=== PATIENT | male | born 1945 | race Caucasian/White ===

== ENCOUNTER 2017-10-24 09:15 | Outpatient (CLI) | payer MEDICARE ==
[~2017-10-24] VITALS: Ht 185.4 cm; Wt 99.8 kg
[~2017-10-24 09:15] MED LIST: ASPI-586 PO; ATOR20TA66 PO; LISI-556 PO; PRAS5TAB3 PO
== END 2017-10-24 09:46 ==
LOC: PREOP 09:15
PROVIDERS: ATTEND Surgery
DX: Z01.818 Encounter for other preprocedural examination (principal); Z12.11 Encounter for screening for malignant neoplasm of colon

== ENCOUNTER 2017-10-26 10:42 | Day surgery (SDC) | payer MEDICARE ==
[~2017-10-26] VITALS: Ht 185.4 cm; Wt 99.8 kg
--- OUTSIDE RECORDS SUMMARY | 2017-10-26 10:45 | XMS REPORT | Continuity of Care Document ---
Author Author [facility] Organization [facility] Address Unknown Phone Unavailable Allergies There is no data. Medications There is no data. Problems There is no data. Procedures There is no data. Results There is no data. Encounters ACCT No. Visit Date/Time Discharge Status Pt. Type Provider Facility Loc./Unit Complaint [id number] 09/19/2017 12:20:04 09/19/2017 23:59:59 CLS Outpatient [id number] 10/20/2017 09:58:00 10/20/2017 23:59:59 CLS Outpatient STEVE CASTRO MD [facility] PREOP COLONOSCOPY [id number] 10/26/2017 12:15:00 PEN Preadmit STEVE CASTRO MD [facility] ENDO SCREENING
[2017-10-26] MEDS ORDERED: NS IV 500 ML 500 ML ONE (10:49)
--- NOTE | 2017-10-26 10:57 | Progress Note-Pre Operative ---
Pre-Operative Progress Note H&P Reviewed The H&P was reviewed, patient examined and no changes noted. Date Seen by Provider: Oct 26, 2017 Time Seen by Provider: 10:50 Date H&P Reviewed: Oct 26, 2017 Time H&P Reviewed: 10:50 Pre-Operative Diagnosis: screening colonoscopy STEVE CASTRO MD Oct 26, 2017 10:57 am
--- NOTE | 2017-10-26 10:57 | Conscious Sedation/ASA ---
Conscious Sedation Pre-Proced Time Reviewed: 10:50 ASA Class: 2 Airway Mallampati Classification: (seminole appropriate class) I. II. III, IV Lungs Heart ASA score ASA 1: a normal healthy patient ASA 2: a patient with a mild systemic disease (mid diabetes, controlled hypertension, obesity ASA 3: a patient with a severe systemic disease that limits activity (angina , COPD, prior Myocardial infarction) ASA 4: a patient with an incapacitating disease that is a constant threat to life (CHF, renal failure) ASA 5: a moribund patient not expected to survive 24 hrs. (ruptured aneurysm) ASA 6: a declared brain patient whose organs are being harvested. For emergent operations, add the letter E after the classification Grade 2 Sedation Plan: Analgesia, Amnesia, Plan communicated to team members, Discussed options with patient/fam, Discussed risks with patient/fam Note The patient is an appropriate candidate to undergo the planned procedure, sedation, and anesthesia. The patient immediately re-assessed prior to indication. STEVE CASTRO MD Oct 26, 2017 10:56 am
[2017-10-26] MEDS ORDERED: morphine INJ 10 MG/ML 1ML (SYR OR VIAL) IV PRN (11:00)
[2017-10-26] MEDS ORDERED: ACETAMINOPHEN 325 MG TABLET PO PRN (11:00)
[2017-10-26] MEDS ORDERED: ONDANSETRON 4 MG/2 ML (SDV) Z0FRAN IV PRN (11:00)
[2017-10-26] MEDS ORDERED: HYDROcodone/APAP 5 MG/325 MG (LORTAB) TAB PO PRN (11:00)
[2017-10-26 11:16] VITALS: BP 131/81
[2017-10-26] MEDS ORDERED: LIDOCAINE JELLY 2% (XYLOCAINE) 5 ML TUBE ONE (11:18)
[2017-10-26] MEDS ORDERED: fentaNYL INJECTION 100 MCG/2 ML AMP ONE (11:18)
[2017-10-26] MEDS ORDERED: MIDAZOLAM 2 MG/2 ML (VERSED) VIAL ONE ×4 (11:19)
[2017-10-26] MEDS ORDERED: NS IV 500 ML 500 ML IV PRN (11:22)
[2017-10-26] MEDS ORDERED: NS IV 500 ML 500 ML IV SCH (11:30)
[2017-10-26] MEDS ORDERED: LIDOCAINE JELLY 2% (XYLOCAINE) 5 ML TUBE MM PRN (11:30)
[2017-10-26] MEDS: fentaNYL INJECTION 100 MCG/2 ML AMP IVP PRN ×2 (11:55→12:13)
[2017-10-26] MEDS: MIDAZOLAM 2 MG/2 ML (VERSED) VIAL IVP PRN ×3 (11:56→12:25)
--- NOTE | 2017-10-26 12:36 | Progress Note-Post Operative ---
Post-Operative Progess Note Surgeon (s)/Early Childhood Teacher Assistant (s) Surgeon STEVE CASTRO MD Early Childhood Teacher Assistant: none Pre-Operative Diagnosis screening colonoscopy Post-Operative Diagnosis mild chronic stage 2 ext and int hemorrhoids, mild sigmoid diverticuosis. Procedure & Operative Findings Date of Procedure 10/26/17 Procedure Performed/Findings Colonoscopy. Anesthesia Type CS Estimated Blood Loss Estimated blood loss (mL): minimal Specimens/Packing Specimens Removed none STEVE CASTRO MD Oct 26, 2017 12:36 pm
--- NOTE | 2017-10-26 12:40 | Discharge Inst-Surgical ---
D/C Lap Instructions-MATTHEW Follow Up Appt in 2 weeks Activity as tolerated High Fiber Diet 25g or more per day Avoid Alcohol, Caffeine, Spicy [place] and Acid foods. Drink 64 fluid oz or more of fluids per day. Symptoms to Report: Fever over 101 degree F, Nausea/Vomiting If any problems/questions: Contact your physician or go to Emergency Room STEVE CASTRO MD Oct 26, 2017 12:40 pm
[2017-10-26 12:50] VITALS: BP 97/63
[2017-10-26 13:28] VITALS: BP 118/81
[2017-10-26 14:00] VITALS: BP 128/85
[2017-10-26 14:08] VITALS: BP 128/85
--- NOTE | 2017-10-26 20:06 | OPERATIVE REPORT ---
DATE OF SERVICE: 10/26/2017 ATTENDING PRIMARY CARE PHYSICIAN: Dr. Nicholson. PREOPERATIVE DIAGNOSIS: Screening colonoscopy. POSTOPERATIVE DIAGNOSES: Chronic stage II external and internal hemorrhoids, mild sigmoid diverticulosis. PROCEDURE: Colonoscopy. SURGEON: Steve Castro MD ANESTHESIA: Conscious sedation. ESTIMATED BLOOD LOSS: Minimal. FINDINGS: Chronic stage II external and internal hemorrhoids. Prostate gland was palpable and appeared normal. Mild sigmoid diverticulosis, no polyps identified. DISPOSITION: The patient tolerated the procedure well. INDICATIONS: The patient is a 72-year-old male in need of a screening colonoscopy. He reports that he did have one approximately 5 to 6 years ago and believes it to be normal; however, he is unsure of any family history of colon cancer. He does not report any red blood per rectum or any dark tarry stools as well as no major episodes of constipation or diarrhea. DESCRIPTION OF PROCEDURE: The patient was brought to the endoscopy suite, laid in the left lateral decubitus position. After adequate IV pain and sedating medications and conscious sedation anesthesia, a digital rectal examination was performed. Chronic stage II external and internal hemorrhoids were identified, which were not actively edematous nor inflamed and no bleeding. Normal sphincter tone was felt and there were no palpable masses. The endoscope was then intubated to the anus, rectum and gently insufflated. The endoscope was then advanced to the valves of Hood of the rectum with no polyps or any neoplasms identified. We then proceeded through the sigmoid colon where a mild sigmoid diverticulosis was identified. There were no mucosal inflammatory changes to indicate any active diverticulitis. Endoscope was then advanced to the remainder of the descending, transverse and ascending colon to the cecum. These segments were normal. There were no polyps or any neoplasms identified throughout the colon or rectum. The endoscope was then slowly withdrawn while taking a second look and suctioning of residual air with no additional findings. The patient tolerated the procedure well. We will recommend continued high-fiber diet with at least 30 g of fiber per day as well as at least 64 fluid ounces of water daily to promote soft stools on a daily basis. If he wants to continue to have screening colonoscopies every 5 years, he may; however, if he is asymptomatic, he may wait longer. Job ID: [id number] DocumentID: [id number] Dictated Date: 10/26/2017 12:48:37 Powered Bridge Specialist Date: 10/26/2017 20:06:18 Dictated By: STEVE CASTRO MD
== END 2017-10-26 14:14 | disposition home or self-care (01) ==
LOC: ENDO 10:42
PROVIDERS: ATTEND Surgery
DX: Z12.11 Encounter for screening for malignant neoplasm of colon (principal); K57.30 Diverticulosis of large intestine without perforation or abscess without bleeding; K64.1 Second degree hemorrhoids; I25.2 Old myocardial infarction; I25.10 Atherosclerotic heart disease of native coronary artery without angina pectoris; I10 Essential (primary) hypertension; E78.00 Pure hypercholesterolemia, unspecified; Z95.5 Presence of coronary angioplasty implant and graft; Z79.899 Other long term (current) drug therapy

== ENCOUNTER 2018-12-22 19:15 | Emergency (ER) | payer MEDICARE ==
[~2018-12-22] VITALS: Ht 186.7 cm; Wt 104.3 kg
[2018-12-22] MEDS ORDERED: fentaNYL INJECTION 100 MCG/2 ML AMP IVP STA (19:38)
--- OUTSIDE RECORDS SUMMARY | 2018-12-22 19:38 | XMS REPORT | Continuity of Care Document ---
Author Organization Unknown Address Unknown Allergies Active Description Code Type Severity Reaction Onset Reported/Identified Relationship to Patient Clinical Status Yes No Known Drug Allergies [id number] Drug Allergy Unknown N/A 10/20/2017 Medications There is no data. Problems Date Dx Coded Attending Type Code Diagnosis Diagnosed By 10/24/2017 STEVE CASTRO MD, Ot Z01.818 ENCOUNTER FOR OTHER PREPROCEDURAL EXAMIN 10/24/2017 STEVE CASTRO MD Ot Z12.11 ENCOUNTER FOR SCREENING FOR MALIGNANT NE 10/24/2017 STEVE CASTRO MD Ot Z01.818 ENCOUNTER FOR OTHER PREPROCEDURAL EXAMIN 10/24/2017 STEVE CASTRO MD Ot Z12.11 ENCOUNTER FOR SCREENING FOR MALIGNANT NE 10/24/2017 STEVE CASTRO MD Ot Z01.818 ENCOUNTER FOR OTHER PREPROCEDURAL EXAMIN 10/24/2017 STEVE CASTRO MD Ot Z12.11 ENCOUNTER FOR SCREENING FOR MALIGNANT NE 10/25/2017 STEVE CASTRO MD Ot Z01.818 ENCOUNTER FOR OTHER PREPROCEDURAL EXAMIN 10/25/2017 STEVE CASTRO MD Ot Z12.11 ENCOUNTER FOR SCREENING FOR MALIGNANT NE 10/26/2017 STEVE CASTRO MD Ot E78.00 PURE HYPERCHOLESTEROLEMIA, UNSPECIFIED 10/26/2017 STEVE CASTRO MD Ot I10 ESSENTIAL (PRIMARY) HYPERTENSION 10/26/2017 STEVE CASTRO MD Ot I25.10 ATHSCL HEART DISEASE OF [place] CORONARY 10/26/2017 STEVE CASTRO MD Ot I25.2 OLD MYOCARDIAL INFARCTION 10/26/2017 STEVE CASTRO MD Ot K57.30 DVRTCLOS OF LG INT W/O PERFORATION OR AB 10/26/2017 STEVE CASTRO MD Ot K64.1 SECOND DEGREE HEMORRHOIDS 10/26/2017 STEVE CASTRO MD Ot Z12.11 ENCOUNTER FOR SCREENING FOR MALIGNANT NE 10/26/2017 STEVE CASTRO MD, Ot Z79.899 OTHER PENITENTIARY (CURRENT) DRUG THERAPY 10/26/2017 STEVE CASTRO MD, Ot Z95.5 PRESENCE OF CORONARY ANGIOPLASTY IMPLANT 10/27/2017 STEVE CASTRO MD Ot E78.00 PURE HYPERCHOLESTEROLEMIA, UNSPECIFIED 10/27/2017 STEVE CASTRO MD Ot I10 ESSENTIAL (PRIMARY) HYPERTENSION 10/27/2017 STEVE CASTRO MD, Ot I25.10 ATHSCL HEART DISEASE OF [place] CORONARY 10/27/2017 STEVE CASTRO MD Ot I25.2 OLD MYOCARDIAL INFARCTION 10/27/2017 STEVE CASTRO MD, Ot K57.30 DVRTCLOS OF LG INT W/O PERFORATION OR AB 10/27/2017 STEVE CASTRO MD, Ot K64.1 SECOND DEGREE HEMORRHOIDS 10/27/2017 STEVE CASTRO MD Ot Z12.11 ENCOUNTER FOR SCREENING FOR MALIGNANT NE 10/27/2017 STEVE CASTRO MD, Ot Z79.899 OTHER PENITENTIARY (CURRENT) DRUG THERAPY 10/27/2017 STEVE CASTRO MD Ot Z95.5 PRESENCE OF CORONARY ANGIOPLASTY IMPLANT 10/30/2017 STEVE CASTRO MD Ot Z01.818 ENCOUNTER FOR OTHER PREPROCEDURAL EXAMIN 10/30/2017 STEVE CASTRO MD, Ot Z12.11 ENCOUNTER FOR SCREENING FOR MALIGNANT NE Procedures There is no data. Results There is no data. Encounters ACCT No. Visit Date/Time Discharge Status Pt. Type Provider Facility Loc./Unit Complaint [id number] 09/22/2018 20:36:59 09/22/2018 23:59:59 CLS Outpatient [id number] 10/26/2017 10:42:00 10/26/2017 14:14:00 DIS Outpatient STEVE CASTRO MD [facility] ENDO SCREENING [id number] 10/24/2017 09:15:00 10/24/2017 09:46:00 DIS Outpatient STEVE CASTRO MD [facility] PREOP COLONOSCOPY [id number] 12/22/2018 19:19:00 ACT Emergency LAKE RAMOS DO Via [facility] ER FS RT LEG INJ
[2018-12-22] MEDS ORDERED: ONDANSETRON 4 MG/2 ML (SDV) Z0FRAN IVP ONE (19:45)
--- NOTE | 2018-12-22 19:55 | ED General ---
General Chief Complaint: Lower Extremity Stated Complaint: RT LEG INJ Nursing Triage Note: PT. WAS RIDING A HORSE UP THE DAM AND A BRANCH FROM A TREE HIT THE HORSE IN THE HEAD, THE HORSE SPUN AND FELL DOWN THE DAM AND LANDED ON THE PT'S RIGHT LEG. PT. WAS BROUGHT IN BY POV. Nursing Sepsis Screen: No Definite Risk History of Present Illness Date Seen by Provider: Dec 22, 2018 Time Seen by Provider: 19:18 This is a 73-year-old man who had his horse fall on his right leg earlier p resenting with complaint of pain from the right hip down to the right ankle. No weakness numbness or tingling although movement makes the pain worse. He did not injure himself anywhere else. He was able to walk on it initially but he states the pain has worsened. Allergies and Home Medications Allergies Coded Allergies: No Known Drug Allergies (Unverified , 12/22/18) Home Medications Aspirin 81 Mg Tablet.dr, 81 MG PO DAILY, (Reported) Atorvastatin Calcium 20 Mg Tablet, 20 MG PO HS, (Reported) Lisinopril 5 Mg Tablet, 5 MG PO DAILY, (Reported) Prasugrel HCl 5 Mg Tablet, 5 MG PO DAILY, (Reported) Patient Home Medication List Home Medication List Reviewed: Yes Review of Systems Review of Systems Constitutional: no symptoms reported EENTM: no symptoms reported Respiratory: no symptoms reported Cardiovascular: no symptoms reported Gastrointestinal: no symptoms reported Genitourinary: no symptoms reported Musculoskeletal: see HPI Skin: no symptoms reported Psychiatric/Neurological: No Symptoms Reported Hematologic/Lymphatic: No Symptoms Reported Immunological/Allergic: no symptoms reported Past Jjgsgfr-Mfltdh-Ehihaj Hx Past Med/Social Hx: Reviewed Nursing Past Med/Soc Hx Patient Social History Former Smoker, Quit: Oct 24, 1997 Recent Foreign Travel: No Contact w/Someone Who Travel: No Recent Infectious Disease Expo: No Recent Hopitalizations: No Physical Abuse: No Sexual Abuse: No Mistreated: No Fear: No Immunizations Up To Date Date of Pneumonia Vaccine: Oct 25, 2015 Seasonal Allergies Seasonal Allergies: No Past Medical History Appendectomy, CABG, Tonsillectomy Sleep Apnea Currently Using BIPAP: Yes (wears sometimes) Heart Attack, Hypertension Physical Exam Vital Signs Vital Signs - First Documented 12/22/18 19:27 Temp 98.1 Pulse 84 Resp 20 B/P (MAP) 120/73 (89) Pulse Ox 99 O2 Delivery Room Air Capillary Refill : Less Than 3 Seconds Height, Weight, BMI Height: 6'1.50" Weight: 230lbs. 0.0oz. 104.401083cf; 29.0 BMI Method:Stated General Appearance: No Apparent Distress HEENT: Other (no abnormalities on inspection or palpation of the head or neck) Neck: Non Tender, Supple Respiratory: Chest Non Tender, Lungs Clear Cardiovascular: Regular Rate, Rhythm, Normal Peripheral Pulses Gastrointestinal: Non Tender (pelvis is stable and nontender), Soft Back: Other (nontender) Extremity: Other (there is tenderness through the diffuse right thigh, ecchymosis over the medial right knee, also swelling and tenderness in the right lower leg with all compartments feeling soft, no point tenderness over the tibial plateau, no joint laxity in the knee) Neurologic/Psychiatric: Alert, Oriented x3, No Motor/Sensory Deficits, lead software test engineer II- XII Norm as Tested; No Abnormal Cerebellar Tests Skin: Warm/Dry Progress/Results/Core Measures Suspected Sepsis Recent Fever Within 48 Hours: No Infection Criteria Present: None New/Unexplained Altered Menta: No Sepsis Screen: No Definite Risk SIRS Temperature:98.1 Pulse: 84 Respiratory Rate: 20 Blood Pressure 120 /73 Mean: 89 Results/Orders My Orders Orders - LA[place] RAMOS DO Fentanyl Injection (Sublimaze Injection (12/22/18 19:38) Ondansetron Injection (Zofran Injectio (12/22/18 19:45) Femur 2 View Right (12/22/18 19:38) Tibia Fibula 2 View Right (12/22/18 19:38) Medications Given in ED Current Medications Medications Dose Ordered Sig/Faustina Route Start Time Stop Time Status Last Admin Dose Admin Ondansetron HCl 8 mg ONCE ONCE IVP 12/22/18 19:45 12/22/18 19:46 DC 12/22/18 19:52 8 MG Vital Signs/I&O 12/22/18 12/22/18 19:27 20:38 Temp 98.1 96.9 Pulse 84 77 Resp 20 20 B/P (MAP) 120/73 (89) 133/98 (110) Pulse Ox 99 100 O2 Delivery Room Air Room Air Capillary Refill : Less Than 3 Seconds Blood Pressure Mean: 89 Progress Note : Progress Note Patient sustained blunt injuries to the right leg, he has actually been walking quite a bit since this happened. X-rays are negative. He mostly has tenderness over the right lateral thigh however all compartments feel soft, this is not consistent with compartment syndrome although I did review return precautions carefully with patient. He actually does not even want any narcotic pain medications prescribed. We provided crutches so that he can stay off the leg as much as possible over the next week, and he will see his doctor soon as possible for tertiary survey. Departure Impression Primary Impression: Contusion of right leg Qualified Codes: S80.11XA - Contusion of right lower leg, initial encounter Disposition: HOME, SELF-CARE Condition: Stable Departure-Patient Inst. Referrals: JULIA BRITT MD (PCP) Primary Care Physician Patient Instructions: Contusion (DC) LA[place] RAMOS DO Dec 22, 2018 19:55
--- NOTE | 2018-12-22 20:13 | Diagnostic Imaging Report ---
INDICATION: Right leg injury. FINDINGS: AP and lateral views of the right femur show no fracture or dislocation. IMPRESSION: Negative right femur. Dictated by: Dictated on workstation # [id number]
--- NOTE | 2018-12-22 20:14 | Diagnostic Imaging Report ---
INDICATION: Right leg injury AP and lateral views of the right tibia and fibula show no fracture or dislocation. IMPRESSION: Negative right tibia and fibula Dictated by: Dictated on workstation # [id number]
[2018-12-22 20:38] VITALS: BP 133/98
== END 2018-12-22 20:54 | disposition home or self-care (01) ==
LOC: EDUNIT# 19:15 → ER FS 19:19
DX: S80.11XA Contusion of right lower leg, initial encounter (principal); G47.30 Sleep apnea, unspecified; I10 Essential (primary) hypertension; I25.2 Old myocardial infarction; Z90.49 Acquired absence of other specified parts of digestive tract; Z95.1 Presence of aortocoronary bypass graft; Z90.89 Acquired absence of other organs; Z87.891 Personal history of nicotine dependence; Z79.82 Long term (current) use of aspirin; V80.010A Animal-rider injured by fall from or being thrown from horse in noncollision accident, initial encounter; Y93.52 Activity, horseback riding
CPT/HCPCS: 73552; 73590

== ENCOUNTER → 2022-03-24 | Outpatient (CLI) | payer MEDICARE ==
[~2022-03-24] MED LIST changes: -LISI-556 PO; +LISI5TAB20 PO
== END | disposition home or self-care (01) ==
LOC: PREOP 06:34
PROVIDERS: ATTEND Internal Medicine
DX: Z01.818 Encounter for other preprocedural examination (principal)

== ENCOUNTER → 2022-04-07 | Outpatient (CLI) | payer MEDICARE | LOC: CARD 13:00 | PROVIDERS: ATTEND Internal Medicine Cardiovascular Disease | DX: I11.9 Hypertensive heart disease without heart failure (principal); I08.0 Rheumatic disorders of both mitral and aortic valves; I25.10 Atherosclerotic heart disease of native coronary artery without angina pectoris | CPT/HCPCS: 93306 ==

== ENCOUNTER → 2022-04-14 | Outpatient (CLI) | payer MEDICARE ==
[~2022-04-14] MED LIST changes: +CATHETER FLUSH 10 ML SYR IVP PRN
[2022-04-14 09:22] VITALS: BP 131/89
[2022-04-14 09:28] VITALS: BP 162/90
--- NOTE | 2022-04-14 11:31 | Cardiology Stress Test Report ---
Stress Test Report Date of Procedure/Referring: Date of Procedure: Apr 14, 2022 PCP Julia Britt MD Admitting Physician Admitting Physician: Attending Physician: Tony Márquez MD Indications: CAD Baseline Heart Rate: 53 Baseline Blood Pressure: Blood Pressure Systolic: 162 Blood Pressure Diastolic: 90 Vital Signs Date Time Temp Pulse Resp B/P (MAP) Pulse Ox O2 Delivery O2 Flow Rate FiO2 04/14/22 09:22 58 131/89 (103) 04/14/22 09:28 21 Baseline Vital Signs Vital Signs Date Time Temp Pulse Resp B/P (MAP) Pulse Ox O2 Delivery O2 Flow Rate FiO2 04/14/22 09:22 58 131/89 (103) 04/14/22 09:28 21 Baseline EKG: Baseline EKG: NSR Summary: After explaining the procedure and details to the patient, he signed the consent and was brought to the stress nuclear laboratory. Patient exercised on standard Prabhakar protocol, EKG, heart rate and blood pressure were monitored continuously, resting and stress doses of radio tracer were injected, imaging was acquired and reviewed in the short axis, horizontal long axis and vertical long axis views Patient was able to exercise for a total of 5.30 minutes on Prabhakar protocol, METs 7.1 Maximum heart rate 126 Maximum blood pressure 196/107 Stress EKG, Minimal nondiagnostic changes Recovery EKG, Return to baseline TID: 1.03 SSS: 15 SDS: 2 EF: 45 Conclusion: 1. Good exercise tolerance for a total of 5 minutes and 30 seconds on standard Prabhakar protocol, 7.1 METS achieving 86% of maximal expected heart rate 2. Appropriate heart rate response to exercise with hypertensive response to exercise with peak blood pressure 196/107 return to baseline during recovery 3. Diaphragmatic attenuation with infarction involving the inferior wall and inferolateral wall and an area of maria teresa-infarct ischemia was noted 4. Normal left ventricular size with hypokinesia of the inferior wall and infer olateral wall with ejection fraction 45% Copy Copies To 1: JULIA BRITT MD, BASHAR J MD Apr 14, 2022 11:31
== END ==
LOC: CARD 07:34
PROVIDERS: ATTEND Internal Medicine Cardiovascular Disease
DX: I25.10 Atherosclerotic heart disease of native coronary artery without angina pectoris (principal); I10 Essential (primary) hypertension
CPT/HCPCS: 78452; 93017; A9502

== ENCOUNTER → 2022-10-26 | Outpatient (CLI) | payer MEDICARE ==
[~2022-10-26] MED LIST changes: -CATHETER FLUSH 10 ML SYR IVP PRN
--- NOTE | 2022-10-26 17:38 | Diagnostic Imaging Report ---
INDICATION: Back pain. TIME OF EXAM: 3:16 p.m. FINDINGS: AP, lateral, and swimmer's views of the thoracic spine were obtained. There is normal thoracic kyphotic curvature. There is some mild anterior wedging of the T12 vertebral body, age indeterminate. The remaining thoracic vertebrae show normal stature. The pedicles and paraspinous line are intact. No acute fractures are seen. There is generalized thoracic spondylosis. IMPRESSION: Anterior wedging of T12 vertebral body. The study is otherwise unremarkable. Dictated by: Dictated on workstation # [id number]
--- NOTE | 2022-10-26 17:38 | Diagnostic Imaging Report ---
Indication: Back pain. Time of Exam: 3:15 PM Three views of the lumbar spine were obtained. Curvature and alignment of the lumbar spine is normal. There is mild anterior wedging involving the T12 vertebral body which could be chronic. Lumbar vertebrae demonstrate normal stature. No acute lumbar compression fracture is seen. There is generalized degenerative disc and facet disease with variable disc space narrowing. There are atherosclerotic calcifications involving the abdominal aorta. IMPRESSION: Lumbar spondylosis. No acute bony abnormality is detected. Dictated by: Dictated on workstation # [id number]
== END ==
LOC: RAD 14:42
PROVIDERS: ATTEND Nurse Practitioner Family
DX: M47.816 Spondylosis without myelopathy or radiculopathy, lumbar region (principal)
CPT/HCPCS: 72072; 72100